=== PATIENT | male | born 1955 | race Asian ===

== ENCOUNTER 2016-11-17 05:44 | Day surgery (SDC) | payer OTHER ==
[~2016-11-17] VITALS: Ht 162.6 cm; Wt 60.6 kg
[2016-11-17] MEDS ORDERED: SIMV5TAB50 PO (06:59)
[2016-11-17] MEDS ORDERED: OMEP40CA6 PO (06:59)
[2016-11-17 07:01] VITALS: Ht 162.6 cm; Wt 60.6 kg
[2016-11-17 07:15] VITALS: BP 130/76; PULSE 72; RESP 16
--- NOTE | 2016-11-17 07:47 | OPPN ---
Date/Time of Note Date/Time of Note DATE: 11/17/16 TIME: 07:45 Operative Report Preoperative Diagnosis Abdominal pain Chronic heartburn Postoperative Diagnosis Hiatal hernia Gastroesophageal reflux disease Gastritis with erosions Operation/Procedure Performed Esophagogastroduodenoscopy and biopsy Provider: ALEXANDRA KELLY MD Anesthesia Type: moderate sedation Estimated blood loss: none Transfusion Required: no Specimens Gastric mucosal biopsy Grafts/Implants: none Complications: no ALEXANDRA KELLY MD Nov 17, 2016 07:47
[2016-11-17] MEDS ORDERED: MIDAZOLAM 1 MG/ML 2 ML INJ ONE (07:51)
[2016-11-17] MEDS ORDERED: FENTAnyl 50 MCG/ML VIAL ONE (07:51)
[2016-11-17 08:15] VITALS: BP 112/76; PULSE 61; RESP 14
--- NOTE | 2016-11-17 09:21 | GILP ---
DATE OF PROCEDURE: 11/17/2016 SURGEON: Farheen Gnuderson MD. PROCEDURE: Esophagogastroduodenoscopy and biopsy. PREOPERATIVE DIAGNOSES: 1. Abdominal pain. 2. Chronic heartburn. POSTOPERATIVE DIAGNOSES: 1. Hiatal hernia. 2. Gastroesophageal reflux disease. 3. Gastritis with erosions. 4. Gastric mucosal biopsies were taken for Helicobacter pylori test. INDICATION: Mr. Declan Aguayo is a 61-year-old male patient who had upper abdominal pain and chronic heartburn not responding to therapy. The patient was scheduled for endoscopy examination for further evaluation. The procedure and possible complications were well explained to the patient. The patient understood and consented to the procedure. DESCRIPTION OF PROCEDURE: Under the influence of fentanyl and Versed, the gastroscope was carefully introduced into the esophagus. Under direct vision, it was advanced to the stomach, into the pylorus, into the duodenal bulb, and descending duodenum. FINDINGS: ESOPHAGUS: The patient had hiatal hernia and gastroesophageal reflux disease. STOMACH: The patient had gastritis with erosions. Gastric mucosal biopsies were taken for Helicobacter pylori test. Duodenum was normal. The patient tolerated the procedure very well. There was no complication from the procedure. At the end of procedure, he was awake with stable vital signs and he was discharged home in care of his family. IMPRESSION: 1. Hiatal hernia. 2. Gastroesophageal reflux disease. 3. Gastritis with erosions. 4. Gastric mucosal biopsies were taken for Helicobacter pylori test. PLAN: 1. Continue omeprazole. 2. Add Zantac 300 mg orally every night at bedtime. 3. Await Helicobacter pylori test report. Dictated By: MD GILLIAN Singer/[email or web address]/[place] /Document#: [id number] CC: Farheen Gunderson MD;*[facility]*
== END 2016-11-17 12:02 | disposition home or self-care (01) ==
LOC: GIL 05:44 → EDSEX 05:44 → GIL 05:49
PROVIDERS: ATTEND Internal Medicine Gastroenterology
DX: R12 Heartburn (principal); K21.9 Gastro-esophageal reflux disease without esophagitis; K29.60 Other gastritis without bleeding; K44.9 Diaphragmatic hernia without obstruction or gangrene
CPT/HCPCS: 43239; 87081; J2250; J3010; Z7610